=== PATIENT | female | born 1980 | race Two or more races ===

== ENCOUNTER 2021-02-11 08:15 | Inpatient (IN) | payer OTHER ==
[~2021-02-11] VITALS: Ht 152.4 cm; Wt 65.8 kg
[2021-03-02] MEDS ORDERED: TRI-SPRINTEC T1 EACH (15:10)
== END 2021-03-05 11:11 | disposition home or self-care (01) | DRG 743 ==
LOC: SURH 03-02 08:15 → OB/GYN 03-02 09:19 → O/R 03-02 09:19 → SURH 03-02 13:00 → OB/GYN 03-02 14:57
PROVIDERS: ADMIT Obstetrics & Gynecology; ATTEND Obstetrics & Gynecology
PROC: 0UT00ZZ Resection of Right Ovary, Open Approach (ICD-10-PCS; 2021-03-02)
PROC: 0UT70ZZ Resection of Bilateral Fallopian Tubes, Open Approach (ICD-10-PCS; 2021-03-02)
PROC: 0UT90ZL Resection of Uterus, Supracervical, Open Approach (ICD-10-PCS; principal; 2021-03-02 13:00)
DX: D25.2 Subserosal leiomyoma of uterus (principal); N83.00 Follicular cyst of ovary, unspecified side; N92.0 Excessive and frequent menstruation with regular cycle

== ENCOUNTER 2021-03-01 10:40 | Emergency (ER) | payer OTHER ==
[~2021-03-01] VITALS: Ht 152.4 cm; Wt 65.8 kg
[2021-03-02] MEDS ORDERED: TRI-SPRINTEC T1 EACH (15:10)
== END 2021-03-01 15:28 | disposition home or self-care (01) ==
LOC: ER 10:40
DX: N93.9 Abnormal uterine and vaginal bleeding, unspecified (principal); D25.9 Leiomyoma of uterus, unspecified

== ENCOUNTER 2022-06-28 10:25 | Outpatient (CLI) | payer OTHER ==
[~2022-06-28 10:25] MED LIST: TRI-SPRINTEC T1 EACH
== END 2022-06-28 10:38 | disposition home or self-care (01) ==
LOC: MAMO-SONO 10:25
PROVIDERS: ATTEND Obstetrics & Gynecology
DX: N60.11 Diffuse cystic mastopathy of right breast (principal); R10.2 Pelvic and perineal pain